=== PATIENT | male | born 1970 | race Caucasian/White ===

== ENCOUNTER 2017-07-01 19:09 | Emergency (ER) | payer MEDICAID ==
[~2017-07-01] VITALS: Ht 175.3 cm; Wt 77.1 kg
[2017-07-01] MEDS ORDERED: PRILOSEC OTC20 MG PO (19:19)
[2017-07-01] MEDS ORDERED: ZOFRAN ODT4 MG PO (21:42)
== END 2017-07-01 21:50 | disposition home or self-care (01) ==
LOC: ED 19:09
DX: K29.50 Unspecified chronic gastritis without bleeding (principal); F17.200 Nicotine dependence, unspecified, uncomplicated; Z88.2 Allergy status to sulfonamides; Z79.899 Other long term (current) drug therapy
CPT/HCPCS: 80053; 81001; 83690; 85025; 99283; G0480